=== PATIENT | female | born 2000 | race Caucasian/White ===

== ENCOUNTER 2021-04-05 15:42 | Emergency (ER) | payer BC ==
[2021-04-05] MEDS ORDERED: Acetaminophen 325 MG TAB ONE (16:41)
[2021-04-05 17:13] LABS: Bilirubin Neg (Negative); Blood, Urine Negative (Negative); Clarity Clear (Clear); Glucose, Urine (Dipstick) Normal (Negative); Ketone, Urine Negative (Negative); Leukocyte 25 (Negative); Nitrite Negative (Negative); Protein, Urine (Dipstick) Negative (Neg-Trace); Urobilinogen Normal mg/dL (Less than 2)
[2021-04-05 17:40] LABS: RBC/HPF 0-3 HPF (0-3)
[2021-04-05 17:41] LABS: Bacteria/HPF 2+ HPF (None Seen)
[2021-04-06 19:49] LABS: SARS-CoV-2 PCR by NAA DETECTED (NotDetected)
== END 2021-04-05 17:48 | disposition home or self-care (01) ==
LOC: CSHERS 15:42
DX: U07.1 COVID-19 (principal)
CPT/HCPCS: 81003; 81015; 99284; U0003; U0005

== ENCOUNTER 2021-04-18 10:10 | Outpatient (CLI) | payer BC ==
[2021-04-19 00:06] LABS: SARS-CoV-2 PCR by NAA Indeterminate (NotDetected)
== END 2021-04-18 10:11 | disposition home or self-care (01) ==
LOC: CSHLAB 10:10
PROVIDERS: ATTEND Obstetrics & Gynecology
DX: Z20.822 Contact with and (suspected) exposure to COVID-19 (principal)
CPT/HCPCS: U0003; U0005

== ENCOUNTER 2021-04-22 09:45 | Inpatient (IN) | payer BC, SELFPAY ==
[~2021-04-22 09:45] MED LIST: Bupivacaine/Epinephrine 0.25% 30 ML VIAL ONE
[2021-04-22] MEDS ORDERED: Butorphanol Tartrate 1 MG/ML VIAL SLOW IVP PRN (20:53)
[2021-04-22] MEDS ORDERED: Acetaminophen 500 MG TAB PO PRN (20:53)
[2021-04-22] MEDS ORDERED: Ibuprofen 800 MG TAB PO PRN (20:53)
[2021-04-22] MEDS ORDERED: Promethazine HCl 25 MG/ML VIAL IM PRN (20:53)
[2021-04-22] MEDS ORDERED: hydrALAZINE 20 MG/ML VIAL SLOW IVP PRN (20:53)
[2021-04-22] MEDS ORDERED: Zolpidem Tartrate 5 MG TAB PO PRN (20:53)
[2021-04-22] MEDS ORDERED: Ondansetron PF 4 MG/2 ML Vial IVP PRN (20:53)
[2021-04-22] MEDS ORDERED: Lidocaine 1% (PF) 30 ML VIAL SC PRN (20:53)
[2021-04-22] MEDS ORDERED: Misoprostol 200 MCG TAB PR PRN (20:53)
[2021-04-22] MEDS ORDERED: HYDROcodone/Acetaminophen 5/325 mg Tablet PO PRN ×2 (20:53)
[2021-04-22] MEDS ORDERED: Diphenoxylate HCl/Atropine Tablet PO PRN ×2 (20:53)
[2021-04-22] MEDS ORDERED: Misoprostol 100 MCG TAB ONE (20:57)
[2021-04-22 21:36] LABS: Hemoglobin 12.1 g/dL (12.0-15.5); Mean Corpuscular HGB CONC 33.5 g/dL (32.0-36.0); Mean Corpuscular Hemoglobin 29.4 pg (27.0-33.0); Mean Corpuscular Volume 87.6 fl (81.6-98.3); Mean Platelet Volume 12.6 fl (7.4-10.4); Platelet Count 168 10x3/uL (150-450); RBC Distribution Width 12.2 % (11.5-14.5); Red Blood Cell (RBC) Count 4.12 10x6/uL (3.90-5.03); White Blood Cell (WBC) Count 11.9 10x3/uL (3.5-10.5)
[2021-04-22 21:38] VITALS: BMI 31.7
[2021-04-22] MEDS ORDERED: NS w/ Oxytocin 30 units 500 ML IV SCH ×2 (22:00)
[2021-04-22 22:13] LABS: Syphilis Antibody Nonreactive (Nonreactive); Syphilis Antibody Index 0.08 S/CO (<1.00 Non-Reactive)
[2021-04-22 22:14] LABS: HIV (1/2) Antibody/Antigen Non-Reactive (NonReactive); HIV 1/2 INDEX 0.12 S/CO (<1.00); Hep B Surf Ag Non-Reactive S/CO (NonReactive)
[2021-04-22 22:15] LABS: HBSAg Index 0.18 S/CO (0-0.99)
[2021-04-23] MEDS: Misoprostol 100 MCG TAB VAG SCH ×4 (00:58→16:32)
[2021-04-23] MEDS: Lactated Ringer's 1,000 ML IV SCH ×4 (07:24→10:16)
[2021-04-23] MEDS ORDERED: Fentanyl 2 mcg/Bup 0.1% Cadd 100 ML ONE ×2 (08:02→16:40)
[2021-04-23] MEDS ORDERED: Lactated Ringer's 500 ML IV PRN (08:45)
[2021-04-23] MEDS ORDERED: Acetaminophen 325 MG TAB PO PRN (08:45)
[2021-04-23] MEDS ORDERED: Naloxone HCl 0.4 mg/ml Vial IVP PRN ×2 (08:45)
[2021-04-23] MEDS ORDERED: Hydrocerin (Eucerin) Cream 120 gm Jar TOP PRN (08:45)
[2021-04-23] MEDS ORDERED: Communication Order-Pharmacy FS SCH (08:45)
[2021-04-23] MEDS ORDERED: diphenhydrAMINE 50 MG/ML VIAL IVP PRN (08:45)
[2021-04-23] MEDS ORDERED: Ondansetron PF 4 MG/2 ML Vial IVP PRN ×2 (08:45→19:33)
[2021-04-23] MEDS ORDERED: Promethazine HCl 25 MG/ML VIAL IM PRN (08:45)
[2021-04-23] MEDS ORDERED: ePHEDrine Sulfate 50 MG/10 ML VIAL SLOW IVP PRN (08:45)
[2021-04-23] MEDS ORDERED: Fentanyl 2 mcg/Bupivacaine 0.1% Cassette 100 ML EPIDURAL SCH (08:45)
[2021-04-23 13:35] LABS: SARS-CoV-2 PCR by NAA DETECTED (NotDetected)
[2021-04-23] MEDS ORDERED: Milk Of Magnesia 30 ML UDCUP PO PRN (19:33)
[2021-04-23] MEDS ORDERED: Misoprostol 200 MCG TAB VAG PRN (19:33)
[2021-04-23] MEDS ORDERED: Zolpidem Tartrate 5 MG TAB PO PRN (19:33)
[2021-04-23] MEDS ORDERED: Boostrix 0.5 ML (Tdap) VIAL IM ONE (19:33)
[2021-04-23] MEDS ORDERED: Benzocaine-Menthol 82.5 ML CAN TOP PRN (19:33)
[2021-04-23] MEDS ORDERED: HYDROcodone/Acetaminophen 5/325 mg Tablet PO PRN ×2 (19:33)
[2021-04-23] MEDS ORDERED: hydrALAZINE 20 MG/ML VIAL SLOW IVP PRN (19:33)
[2021-04-23] MEDS ORDERED: Preparation H Ointment 28 GM TUBE PR PRN (19:33)
[2021-04-23] MEDS ORDERED: Bisacodyl 10 MG SUPP PR PRN (19:33)
[2021-04-23] MEDS ORDERED: Lanolin Ointment 7 GM TUBE TOP PRN (19:33)
[2021-04-23] MEDS ORDERED: diphenhydrAMINE 25 MG CAP PO PRN (19:33)
[2021-04-23] MEDS ORDERED: NS w/ Oxytocin 30 units 500 ML IV SCH (19:45)
[2021-04-23] MEDS ORDERED: NS w/ Oxytocin 30 units 500 ML ONE (23:04)
[2021-04-24] MEDS: Ibuprofen 800 MG TAB PO SCH ×4 (00:55→21:08)
[2021-04-24] MEDS: Docusate 100 MG CAP PO SCH ×3 (02:44→21:07)
[2021-04-24 04:20] LABS: Hemoglobin 10.2 g/dL (12.0-15.5); Mean Corpuscular HGB CONC 32.7 g/dL (32.0-36.0); Mean Corpuscular Hemoglobin 29.3 pg (27.0-33.0); Mean Corpuscular Volume 89.7 fl (81.6-98.3); Mean Platelet Volume 12.4 fl (7.4-10.4); Platelet Count 140 10x3/uL (150-450); RBC Distribution Width 12.7 % (11.5-14.5); Red Blood Cell (RBC) Count 3.48 10x6/uL (3.90-5.03); White Blood Cell (WBC) Count 16.5 10x3/uL (3.5-10.5)
[2021-04-24] MEDS: Ferrous Sulfate 325 MG TAB PO SCH ×2 (08:02→16:48)
[2021-04-24] MEDS: Misoprostol 100 MCG TAB VAG SCH ×2 (08:05→08:06)
[2021-04-24] MEDS: Prenatal Vitamin 1 TAB PO SCH (09:09)
[2021-04-25] MEDS: Ibuprofen 800 MG TAB PO SCH (05:15)
[2021-04-25 08:00] VITALS: BP 118/61; TEMP 98.6
[2021-04-25] MEDS: Ferrous Sulfate 325 MG TAB PO SCH (08:04)
[2021-04-25] MEDS: Docusate 100 MG CAP PO SCH (09:01)
[2021-04-25] MEDS: Prenatal Vitamin 1 TAB PO SCH (09:01)
== END 2021-04-25 11:30 | disposition home or self-care (01) | DRG 807 ==
LOC: CSHLD 19:28 → CSHPP 04-24 00:09
PROVIDERS: ADMIT Obstetrics & Gynecology; ATTEND Obstetrics & Gynecology
PROC: 10E0XZZ Delivery of Products of Conception, External Approach (ICD-10-PCS; principal; 2021-04-22)
DX: O80 Encounter for full-term uncomplicated delivery (principal); Z37.0 Single live birth; Z20.822 Contact with and (suspected) exposure to COVID-19; Z3A.38 38 weeks gestation of pregnancy
CPT/HCPCS: 36415; 51702; 85027; 86780; 86850; 86900; 86901; 87340; 87389; J2590; J7120; U0003; U0005